=== PATIENT | female | born 1950 | race Caucasian/White ===

== ENCOUNTER 2017-04-10 16:36 | Emergency (ER) | payer OTHER ==
[~2017-04-10] VITALS: Ht 160 cm; Wt 53.3 kg
[2017-04-10] MEDS ORDERED: SODIUM CHLORIDE 0.9% 1,000 ML IV ONE (16:47)
[2017-04-10] MEDS ORDERED: SODIUM CHLORIDE FLUSH 10ML SYR IVF ONE (17:00)
[2017-04-10] MEDS ORDERED: methylPREDNISolone SOD SUCC 125 MG/2 ML IVP ONE (17:00)
[2017-04-10] MEDS ORDERED: methylPREDNISolone SOD SUCC 125 MG/2 ML ONE (17:23)
[2017-04-10 17:31] LABS: BLOOD UREA NITROGEN 11 mg/dL (7-18)
[2017-04-10 17:35] LABS: IS PT STATUS REG ER OR PRE ER? YES
[2017-04-10] MEDS ORDERED: ALBUTEROL/IPRATROPIUM 2.5MG/0.5MG, 3 ML ONE (18:07)
[2017-04-10] MEDS: ALBUTEROL/IPRATROPIUM 2.5MG/0.5MG, 3 ML NPPB SCH (18:11)
[2017-04-10 18:48] VITALS: BP 156/86
== END 2017-04-10 19:35 | disposition home or self-care (01) ==
LOC: ED 19:00
DX: J44.1 Chronic obstructive pulmonary disease with (acute) exacerbation (principal)
CPT/HCPCS: 36415; 71010; 80048; 82040; 84484; 85025; 93005; 94640; 96361; 96374; 99285; J2930; J7030; J7620

== ENCOUNTER 2019-01-17 09:54 | Emergency (ER) | payer OTHER ==
[~2019-01-17] VITALS: Ht 160 cm; Wt 51.2 kg
[2019-01-17 09:57] VITALS: BP 120/74
--- NOTE | 2019-01-17 10:13 | NUR ---
Productive cough, sore throat, increased SOB x 5 days. Hx COPD, using nebs & inhaler w/out adequate relief of SOB. WPD, speaking full sentences, denies SOB at this time, no CP.
== END 2019-01-17 10:54 | disposition home or self-care (01) ==
LOC: ED 10:10
DX: J43.9 Emphysema, unspecified (principal); F17.200 Nicotine dependence, unspecified, uncomplicated; Z88.0 Allergy status to penicillin
CPT/HCPCS: 71046; 99283; J7512